=== PATIENT | male | born 1955 | race Caucasian/White ===

== ENCOUNTER 2021-01-06 10:31 | Day surgery (SDC) | payer BC, MEDICARE ==
[~2021-01-06 10:31] MED LIST: Metoclopramide 10 MG/2 ML SDV IV PRN; Sodium Chloride 0.9% 1,000 ML IV SCH
[2021-01-06] MEDS ORDERED: Propofol 1,000 MG/100 ML SDV ONE (13:30)
--- NOTE | 2021-01-06 20:41 | OR ---
DATE OF OPERATION: 01/06/2021 SURGEON: Lexx Powell MD PREOPERATIVE DIAGNOSIS: Positive Cologuard test. POSTOPERATIVE DIAGNOSIS: Positive Cologuard test. PROCEDURE: Colonoscopy with polypectomy x2. ANESTHESIA: MAC. ESTIMATED BLOOD LOSS: Minimal. COMPLICATIONS: None. INDICATION FOR THE PROCEDURE: The patient is a 65-year-old male, here today for colonoscopy. Last colonoscopy was reportedly 40 years ago. He has not noticed any change in bowel habits, but did have a positive Cologuard test recently. He is here today for diagnostic colonoscopy. DESCRIPTION OF PROCEDURE: Informed consent was obtained from the patient. The patient was taken to the operating room, placed on the table in left lateral decubitus position. Monitored anesthesia care was administered. Digital rectal exam was performed and was normal. Colonoscope was then advanced through the anus, directed toward the cecum. Cecum was reached and identified by appendiceal orifice and ileocecal valve. Colonoscope was then slowly withdrawn. He did have two small sessile polyps, one in the sigmoid colon removed by hot forceps polypectomy, second in the rectum also removed by hot forceps polypectomy. Blood loss was minimal. Colonoscope was then fully withdrawn. FINDINGS: Sigmoid and rectal polyps x2, appearing benign. RECOMMENDATION: We will follow up on pathology. Otherwise, would recommend repeat surveillance colonoscopy in 5 years. WANDER/NIKKI /[id number]
== END 2021-01-06 14:35 | disposition home or self-care (01) ==
LOC: LB.SDS 10:31
PROVIDERS: ATTEND Surgery
DX: D12.5 Benign neoplasm of sigmoid colon (principal); D12.8 Benign neoplasm of rectum; M79.10 Myalgia, unspecified site
CPT/HCPCS: 88305; J2704; J7030

== ENCOUNTER 2023-11-29 13:47 | Emergency (ER) | payer OTHER, MEDICARE ==
[2023-11-29 14:20] LABS: BASOPHILS ABSOLUTE AUTO 0.05 K/uL (0.02-0.10); BASOPHILS PERCENT AUTO 0.6 % (0.0-0.5); EOSINOPHILS ABSOLUTE AUTO 0.11 K/uL (0.04-0.40); EOSINOPHILS PERCENT AUTO 1.3 % (1.0-5.0); HEMOGLOBIN 15.6 g/dL (13.0-18.0); LYMPHOCYTES ABSOLUTE AUTO 2.13 K/uL (1.50-4.00); LYMPHOCYTES PERCENT AUTO 24.9 % (20.0-40.0); MEAN CORPUSCULAR HEMOGLOBIN 33.4 pg (27.0-32.0); MEAN CORPUSCULAR HGB CONC 35.5 g/dL (31.0-35.0); MEAN CORPUSCULAR VOLUME 94 fL (76-96); MEAN PLATELET VOLUME 9.4 fL (6.0-10.0); MONOCYTES ABSOLUTE AUTO 0.94 K/uL (0.20-0.80); NEUTROPHILS ABSOLUTE AUTO 5.32 K/uL (2.00-7.50); NEUTROPHILS PERCENT AUTO 62.2 % (45.0-70.0); PLATELET COUNT,PLT 211 K/uL (150-400); RED BLOOD CELL COUNT 4.67 M/uL (4.50-6.50); RED CELL DISTRIBUTION WIDTH 13.6 % (11.0-16.0); WHITE BLOOD CELL COUNT,WBC 8.6 K/uL (4.0-11.0)
[2023-11-29 14:39] LABS: INR 0.9 (1.0-3.5); PTT,PARTIAL THROMBOPLSTIN TIME 24.7 SECONDS (24.4-33.2)
[2023-11-29 14:40] LABS: PROTHROMBIN TIME 9.8 sec (9.0-11.5)
== END 2023-11-29 14:52 | disposition home or self-care (01) ==
LOC: LB.ED 13:47
DX: R04.0 Epistaxis (principal); J44.9 Chronic obstructive pulmonary disease, unspecified; Z79.899 Other long term (current) drug therapy
CPT/HCPCS: 36415; 85025; 85610; 85730; 99283